=== PATIENT | female | born 1960 | race Caucasian/White ===

== ENCOUNTER 2016-08-28 15:57 | Emergency (ER) | payer OTHER ==
[2016-08-28 16:03] VITALS: BP 165/100; PULSE 88; TEMP 98.1; BMI 23.1
[2016-08-28] MEDS ORDERED: KETOROLAC TROMETHAMINE 60 MG/2 ML VIAL IM ONE (16:55)
--- NOTE | 2016-08-28 16:57 | PDOC ---
History of Present Illness - General Chief Complaint: Injury Stated Complaint: FALL Time Seen by Provider: 08/28/16 16:29 History Source: Patient Exam Limitations: No Limitations - History of Present Illness Initial Comments: 08/28/16 16:55 56 yr female trip and fall at 2pm today injured left wrist, left knee and left ribs. no head trauma no LOC. Occurred: reports: this afternoon (2pm) Severity: reports: moderate Method of Injury: Yes: fall Past History - Past Medical History Allergies/Adverse Reactions: Allergies Allergy/AdvReac Type Severity Reaction Status Date / Time No Known Allergies Allergy Verified 08/28/16 15:59 Home Medications: Ambulatory Orders Ibuprofen 800 mg PO TID PRN #20 tablet 08/28/16 HTN: Yes - Psycho/Social/Smoking Cessation Hx Anxiety: No Suicidal Ideation: No Smoking History: Never smoked Hx Alcohol Use: Yes (socially) Drug/Substance Use Hx: No Substance Use Type: Alcohol Trauma Specific PMHX - Complaint Specific PMHX Arthritis: No Back Injury: No Neck Injury: No Hx Sacro Iliac Joint Dysfunction: No Review of Systems - Review of Systems Able to Perform ROS?: Yes Is the patient limited Urdu proficient: No Constitutional: No: Symptoms Reported HEENTM: No: Symptoms Reported Respiratory: No: Symptoms reported Cardiac (ROS): No: Symptoms Reported ABD/GI: No: Symptoms Reported : No: Symptoms Reported Musculoskeletal: Yes: Symptoms Reported *Physical Exam - Vital Signs Last Vital Signs Temp Pulse Resp BP Pulse Ox 98.1 F 88 18 165/100 98 08/28/16 15:59 08/28/16 15:59 08/28/16 15:59 08/28/16 15:59 08/28/16 15:59 - Physical Exam General Appearance: Yes: Nourished, Appropriately Dressed HEENT: positive: EOMI, BAL[place] Neck: negative: Tender Respiratory/Chest: positive: Lungs Clear, Normal Breath Sounds, Other (tender under left breast rib , no crepitus ) Cardiovascular: positive: Regular Rhythm, Regular Rate Gastrointestinal/Abdominal: positive: Normal Bowel Sounds, Soft. negative: Tender Extremity: positive: Normal Capillary Refill, Tender (left wrist , left knee ). negative: Swelling Integumentary: positive: Normal Color, Dry, Warm Neurologic: positive: Fully Oriented, Alert, Normal Mood/Affect, Normal Response , Motor Strength 5/5 Procedures - Splinting Pre-Made Type: velcro (left wrist) Sling: Yes ED Treatment Course - RADIOLOGY Radiology Studies Ordered: Category Date Time Status CHEST PA & LAT [RAD] Stat Radiology 08/28/16 16:54 Ordered KNEE 3 POS-LEFT [RAD] Stat Radiology 08/28/16 16:54 Ordered RIBS-LEFT SIDE [RAD] Stat Radiology 08/28/16 16:54 Ordered WRIST W/HAND-LEFT* [RAD] Stat Radiology 08/28/16 16:54 Ordered Medical Decision Making - Medical Decision Making 08/28/16 16:57 cc: trip and fall no loc pain to left wrist, left knee left ribs will xray to r/o fracture toradol for pain 08/28/16 17:29 08/28/16 17:30 08/28/16 17:58 preliminary reading of the xrays are negative no acute fractures will place splint and sling to left arm I have discussed with pt and her daughter that the radiologist will read the xrays in 24hrs and we will call her if any changes. pt understands and agrees with plan of care. *DC/Admit/Observation/Transfer Diagnosis at time of Disposition: Left wrist sprain Qualifiers: Encounter type: initial encounter Qualified Code(s): S63.502A - Unspecified sprain of left wrist, initial encounter Contusion of rib on left side Qualifiers: Encounter type: initial encounter Qualified Code(s): S20.212A - Contusion of left front wall of thorax, initial encounter - Discharge Dispostion Disposition: HOME Condition at time of disposition: Good - Prescriptions Prescriptions: Ibuprofen 800 mg PO TID PRN #20 tablet PRN Reason: Pain - Referrals Referrals: Kd Sherman MD [Primary Care Provider] - Cheko Pickard MD [Staff Physician] - - Patient Instructions Additional Instructions: use the velcro splint and sling at all times except to bathe and sleep take ibuprofen 800mg every 6hrs for pain as needed follow with the orthopedist Dr. Pickard for follow up, PLEASE call tomorrow to make appointment for this week or see your primary care doctor - Post Discharge Activity Work/School Note: Back to Work
[2016-08-28] MEDS ORDERED: KETOROLAC TROMETHAMINE 60 MG/2 ML VIAL ONE (17:02)
== END 2016-08-28 18:08 | disposition home or self-care (01) ==
LOC: JERFT 15:57
PROC: 2W3DX1Z Immobilization of Left Lower Arm using Splint (ICD-10-PCS; principal; 2016-08-28)
DX: S63.592A Other specified sprain of left wrist, initial encounter (principal); S20.212A Contusion of left front wall of thorax, initial encounter; W01.0XXA Fall on same level from slipping, tripping and stumbling without subsequent striking against object, initial encounter; Y93.89 Activity, other specified; Y92.89 Other specified places as the place of occurrence of the external cause
CPT/HCPCS: 71020-TC; 71101-TC; 73090-TC-LT; 73110-TC-LT; 73130-TC-LT; 73562-TC-LT; 99281-25